=== PATIENT | female | born 1960 | race Caucasian/White ===

== ENCOUNTER 2017-05-12 08:23 | Day surgery (SDC) | payer BC ==
--- NOTE | ~2017-05-12 | EGD ---
EGD REPORT [facility] [address] [id number] NAME: ZOHRA BARILLAS : [birth year] STATUS : REG [facility] [place] PAT#: [id number] AGE: 56 ADM/REG DATE : 05/12/17 MR#: [id number] REPORT SERV DATE: 05/12/17 DICTATED BY: BETTY BRYSON DATE: 05/12/17 REPORT STATUS : Draft [facility] DATE: 05/12/17 Endoscopy Center Patient Name: Zohra Barillas Date of : 1960 Attending MD: BETTY BRYSON MD Procedure Date No Time: 05/12/2017 Procedure: Upper GI endoscopy Indications: Diagnostic procedure, Chronic cough Referring MD: MIKEL MÉNDEZ JR. Medicines: Sedation Required Anesthesia Staff Assistance Complications: No immediate complications. Estimated blood loss: Minimal. Procedure: Pre-Anesthesia Assessment: - ASA Grade Assessment: I - A normal, healthy patient. After obtaining informed consent, the endoscope was passed under direct vision. Throughout the procedure, the patient's blood pressure, pulse, and oxygen saturations were monitored continuously. The GIF [id number] was introduced through the mouth, and advanced to the third part of duodenum. The upper GI endoscopy was accomplished without difficulty. The patient tolerated the procedure well. Findings: The lower third of the esophagus was normal. Biopsies were taken with a cold forceps for histology. The FOX capsule with delivery system was introduced through the mouth and advanced into the esophagus, such that the FOX pH capsule was positioned 32 cm from the incisors. The FOX pH capsule was then deployed and attached to the esophageal mucosa. The delivery system was then withdrawn. Endoscopy was utilized for probe placement and diagnostic evaluation. Patchy mildly erythematous mucosa without bleeding was found in the gastric antrum. Biopsies were taken with a cold forceps for histology. The examined duodenum was normal. Impression: - Normal lower third of esophagus. Biopsied. - Erythematous mucosa in the antrum. Biopsied. - Normal examined duodenum. - The FOX pH capsule was deployed. Recommendation: - Await pathology results. - Patient has a contact number available for emergencies. The signs and symptoms of potential delayed complications were discussed with the patient. Return to normal activities tomorrow. Written discharge EGD REPORT [address] [id number] NAME: ZOHRA BARILLAS : [birth year] STATUS : REG [facility]#: [id number] AGE: 56 ADM/REG DATE : 05/12/17 MR#: [id number] REPORT SERV DATE: 05/12/17 DICTATED BY: BETTY BRYSON. DATE: 05/12/17 REPORT STATUS : Draft TRANSCRIBED BY: [employer] DATE: 05/12/17 instructions were provided to the patient. - Clear liquid diet today. - Await pathology results. Procedure Code(s): --- Professional --- 93393, Esophagogastroduodenoscopy, flexible, transoral; with biopsy, single or multiple Diagnosis Code(s): --- Professional --- K31.9, Disease of stomach and duodenum, unspecified R05, Cough CPT copyright 2013 [employer]. All rights reserved. The codes documented in this report are preliminary and upon manager small business review may be revised to meet current compliance requirements. BETTY BRYSON MD 05/12/2017 10:37 AM This report has been signed electronically. Number of Addenda: 0 Note Initiated On: 05/12/2017 9:41 AM Scope Withdrawal Time 0 hours 0 minutes 0 seconds [id number] [id number]
[~2017-05-12 08:23] MED LIST: FLONASE NAS; LEXAPRO5 MG PO
== END 2017-05-12 23:59 | disposition home or self-care (01) ==
LOC: DMU 08:23
PROVIDERS: Internal Medicine Gastroenterology
PROC: 0DB38ZX Excision of Lower Esophagus, Via Natural or Artificial Opening Endoscopic, Diagnostic (ICD-10-PCS; principal; 2017-05-12 10:00)
PROC: 0DB68ZX Excision of Stomach, Via Natural or Artificial Opening Endoscopic, Diagnostic (ICD-10-PCS; 2017-05-12 10:00)
DX: K29.50 Unspecified chronic gastritis without bleeding (principal); K31.9 Disease of stomach and duodenum, unspecified; R05 Cough; K21.9 Gastro-esophageal reflux disease without esophagitis; E78.00 Pure hypercholesterolemia, unspecified; F41.9 Anxiety disorder, unspecified; K76.0 Fatty (change of) liver, not elsewhere classified; G43.909 Migraine, unspecified, not intractable, without status migrainosus; Z90.710 Acquired absence of both cervix and uterus; Z79.899 Other long term (current) drug therapy; Z79.51 Long term (current) use of inhaled steroids
CPT/HCPCS: 84703; 88305; 91035